=== PATIENT | male | born 1985 | race Caucasian/White ===

== ENCOUNTER 2018-05-26 12:09 | Emergency (ER) | payer SELFPAY ==
[2018-05-26 13:07] LABS: Absolute Lymphocytes (CBC) 1.9 K/uL (0.7-4.9); Absolute Monocytes 0.7 K/uL (0.1-1.3); Absolute Neutrophil 6.5 K/uL (1.8-8.0); Basophils % 0.7 % (0-1.3); Eosinophils % 0.4 % (0-4.4); Hematocrit 40.9 % (39.6-49.0); Lymphocytes % 20.7 % (15.3-44.8); MCH 31.4 pg (27.0-35.0); MCV 90.1 fL (80-100); MPV 7.9 fL (7.6-11.3); Monocytes % 7.6 % (3.3-12.3); RBC Red Blood Cell Count 4.54 M/uL (4.33-5.43)
[2018-05-26 13:57] LABS: Albumin 4.1 g/dL (3.4-5.0); Bilirubin Direct 0.1 mg/dL (0-0.2); Bilirubin Total 0.5 mg/dL (0.2-1.0); Potassium 4.6 mmol/L (3.5-5.1); Protein, Total 7.9 g/dL (6.4-8.2)
--- NOTE | 2018-05-26 14:54 | RAD REPORT ---
EXAM DESCRIPTION: CTAbdomen Pelvis W Contrast - 05/26/2018 2:39 pm CLINICAL HISTORY: Abdominal pain. iv only;Abd pain COMPARISON: No comparisons TECHNIQUE: Biphasic CT imaging of the abdomen and pelvis was performed with 100 ml non-ionic IV cont rast. All CT scans are performed using dose optimization technique as appropriate and may include automated exposure control or mA/KV adjustment according to patient size. FINDINGS: The lung bases are clear. The liver, spleen, pancreas, adrenal glands and kidneys are within normal limits. No bowel obstruction, free air, free fluid or abscess. The appendix is normal. No evidence of signi ficant lymphadenopathy. No suspicious bony findings. IMPRESSION: No acute intra-abdominal or pelvic finding.
--- NOTE | 2018-05-26 15:05 | ER ---
Nurse's Notes [facility] Name: Antolin Parmar Age: 32 yrs Sex: Male : 1985 Arrival Date: 05/26/2018 Time: 12:13 Bed 18 Private MD: None, None Diagnosis: Low back pain;Abdominal and pelvic pain Presentation: 05/26 12:21 Presenting complaint: Patient states: right flank pain and nausea/vomiting. Pt states aa5 "I've been throwing up dark blood for about 2 weeks". Pt states "my urine is brown". Denies pain with urination. Transition of care: patient was not received from another setting of care. Onset of symptoms was May 2018. Risk Assessment: Do you want to hurt yourself or someone else? Patient reports no desire to harm self or others. Initial Sepsis Screen: Does the patient meet any 2 criteria? No. Patient's initial sepsis screen is negative. Does the patient have a suspected source of infection? No. Patient's initial sepsis screen is negative. Care prior to arrival: None. 12:21 Method Of Arrival: Ambulatory aa5 12:21 Acuity: CATALINA 3 aa5 Historical: - Allergies: 12:22 No Known Allergies; aa5 - Home Meds: 12:22 None [Active]; aa5 - PMHx: 12:22 None; aa5 - PSHx: 12:22 None; aa5 - Immunization history:: Adult Immunizations unknown. - Social history:: Smoking status: Patient uses tobacco products, 1-2 cigarettes a day . - Ebola Screening: : No symptoms or risks identified at this time. Screenin:55 Abuse screen: Denies threats or abuse. Denies injuries from another. Nutritional aj screening: No deficits noted. Tuberculosis screening: No symptoms or risk factors identified. Fall Risk None identified. Assessment: 14:15 General: Appears in no apparent distress. comfortable, Behavior is calm, cooperative, aj appropriate for age. Pain: Complains of pain in right lower quadrant and anterior aspect of right lateral abdomen. Neuro: Level of Consciousness is awake, alert, obeys commands, Oriented to person, place, time, situation, Appropriate for age. Respiratory: Airway is patent Respiratory effort is even, unlabored, Respiratory pattern is regular, symmetrical. GI: Abdomen is flat, Reports nausea. Derm: Skin is intact, is healthy with good turgor, Skin is pink, warm \\T\\ dry. normal. Musculoskeletal: Reports pain in back. Vital Signs: 12:22 BP 130 / 72; Pulse 93; Resp 16 S; Temp 98.2(O); Pulse Ox 100% on R/A; Weight 63.5 kg aa5 (R); Height 5 ft. 9 in. (175.26 cm) (R); Pain 9/10; 14:55 BP 129 / 75; Pulse 81; Resp 19; Pulse Ox 99% on R/A; aj 12:22 Body Mass Index 20.67 (63.50 kg, 175.26 cm) aa5 ED Course: 12:13 Patient arrived in ED. mr 12:13 None, None is Private Physician. mr 12:21 Arm band placed on. aa5 12:22 Triage completed. aa5 12:25 Erinn Bynum, KASSI is Primary Nurse. aj 12:29 Rahul Alves PA is PHCP. jr8 12:29 Dex Das MD is Attending Physician. jr8 12:45 Pulse ox on. NIBP on. jp3 13:00 Bed in low position. Call light in reach. Side rails up X 1. jp3 13:00 Urine collected: clean catch specimen, clear, karen colored, Amount Voided: 60mL. jp3 13:29 Lab(s) recollected, by me, sent to lab. jp3 13:30 Basic Metabolic Panel Sent. jp3 13:30 Lipase Sent. jp3 13:30 Hepatic Function Sent. jp3 13:30 Creatinine for Radiology Sent. jp3 13:30 Urine Dipstick--Ancillary (enter results) Sent. jp3 14:15 Inserted saline lock: 20 gauge in right antecubital area, using aseptic technique. aj Blood collected. 14:38 CT completed. Patient tolerated procedure well. Patient moved to CT via wheelchair. vr Patient moved back from CT. 14:39 CT Abd/Pelvis - W/Contrast In Process Unspecified. EDMS 15:03 Cheikh Pagan MD is Referral Physician. jr8 15:13 No provider procedures requiring assistance completed. IV discontinued, intact, aj bleeding controlled, No redness/swelling at site. Pressure dressing applied. Administered Medications: No medications were administered Outcome: 15:03 Discharge ordered by . jr8 15:13 Discharged to home ambulatory. aj 15:13 Condition: good 15:13 Discharge instructions given to patient, Instructed on discharge instructions, follow up and referral plans. medication usage, Demonstrated understanding of instructions, follow-up care, medications, Prescriptions given X 2. 15:31 Patient left the ED. aj Signatures: Dispatcher [employer] Erinn Bliss RN RN aj Rivera, Mary mr Calderon, Audri, RN RN Delmi Willis Josh, PA PA jr8 Lonnie Estrada jp3
--- NOTE | 2018-05-26 15:05 | EDPHYS ---
Physician Documentation [facility] Name: Antolin Parmar Age: 32 yrs Sex: Male : 1985 Arrival Date: 05/26/2018 Time: 12:13 Bed 18 Private MD: None, None ED Physician Dex Das HPI: 05/26 13:56 This 32 yrs old Male presents to ER via Ambulatory with complaints of flank jr8 pain. 13:56 The patient complains of pain in the right flank. Onset: The symptoms/episode jr8 began/occurred acutely, today. Modifying factors: The symptoms are alleviated by nothing. the symptoms are aggravated by nothing. Associated signs and symptoms: Pertinent positives: nausea, vomiting. Severity of pain: At its worst the pain was moderate in the emergency department the pain is unchanged. The patient has not experienced similar symptoms in the past. The patient has not recently seen a physician. Historical: - Allergies: 12:22 No Known Allergies; aa5 - Home Meds: 12:22 None [Active]; aa5 - PMHx: 12:22 None; aa5 - PSHx: 12:22 None; aa5 - Immunization history:: Adult Immunizations unknown. - Social history:: Smoking status: Patient uses tobacco products, 1-2 cigarettes a day . - Ebola Screening: : No symptoms or risks identified at this time. ROS: 13:56 Eyes: Negative for injury, pain, redness, and discharge, ENT: Negative for injury, jr8 pain, and discharge, Neck: Negative for injury, pain, and swelling, Cardiovascular: Negative for chest pain, palpitations, and edema, Respiratory: Negative for shortness of breath, cough, wheezing, and pleuritic chest pain, MS/Extremity: Negative for injury and deformity, Skin: Negative for injury, rash, and discoloration, Neuro: Negative for headache, weakness, numbness, tingling, and seizure. 13:56 Abdomen/GI: Positive for abdominal pain, nausea and vomiting, Negative for diarrhea, constipation, abdominal cramps, abdominal distension, anorexia, dysphagia, hematemesis, black/tarry stool, rectal pain, rectal bleeding, bowel incontinence, flatulence. 13:56 Back: Positive for flank pain, on the right. Exam: 13:56 Eyes: Pupils equal round and reactive to light, extra-ocular motions intact. Lids and jr8 lashes normal. Conjunctiva and sclera are non-icteric and not injected. Cornea within normal limits. Periorbital areas with no swelling, redness, or edema. ENT: Nares patent. No nasal discharge, no septal abnormalities noted. Tympanic membranes are normal and external auditory canals are clear. Oropharynx with no redness, swelling, or masses, exudates, or evidence of obstruction, uvula midline. Mucous membranes moist. Neck: Trachea midline, no thyromegaly or masses palpated, and no cervical lymphadenopathy. Supple, full range of motion without nuchal rigidity, or vertebral point tenderness. No Meningismus. Cardiovascular: Regular rate and rhythm with a normal S1 and S2. No gallops, murmurs, or rubs. Normal PMI, no JVD. No pulse deficits. Respiratory: Lungs have equal breath sounds bilaterally, clear to auscultation and percussion. No rales, rhonchi or wheezes noted. No increased work of breathing, no retractions or nasal flaring. Skin: Warm, dry with normal turgor. Normal color with no rashes, no lesions, and no evidence of cellulitis. MS/ Extremity: Pulses equal, no cyanosis. Neurovascular intact. Full, normal range of motion. Neuro: Awake and alert, GCS 15, oriented to person, place, time, and situation. Cranial nerves II-XII grossly intact. Motor strength 5/5 in all extremities. Sensory grossly intact. Cerebellar exam normal. Normal gait. 13:56 Abdomen/GI: Inspection: abdomen appears normal, Bowel sounds: active, all quadrants, Palpation: soft, in all quadrants, mild abdominal tenderness, in the anterior aspect of right lateral abdomen and right lower quadrant, mass, is not appreciated, rebound tenderness, is not appreciated, voluntary guarding, is not appreciated, involuntary guarding, is not appreciated, no appreciated organomegaly, Indicators: McBurney's point is not tender, Santana's sign is negative, Rovsing's sign is negative, Liver: tenderness, is not appreciated. 13:56 Back: pain, is absent, ROM is normal, normal spinal alignment noted, CVA tenderness, that is mild, is noted on the right. Vital Signs: 12:22 BP 130 / 72; Pulse 93; Resp 16 S; Temp 98.2(O); Pulse Ox 100% on R/A; Weight 63.5 kg aa5 (R); Height 5 ft. 9 in. (175.26 cm) (R); Pain 9/10; 14:55 BP 129 / 75; Pulse 81; Resp 19; Pulse Ox 99% on R/A; aj 12:22 Body Mass Index 20.67 (63.50 kg, 175.26 cm) aa5 MDM: 12:29 Patient medically screened. [facility] 15:03 Data reviewed: vital signs, nurses notes, lab test result(s), radiologic studies, CT jr8 scan, and as a result, I will discharge patient. Data interpreted: Pulse oximetry: on room air is 100 %. Interpretation: normal. Counseling: I had a detailed discussion with the patient and/or guardian regarding: the historical points, exam findings, and any diagnostic results supporting the discharge/admit diagnosis, lab results, radiology results, the need for outpatient follow up, a family practitioner, a cable tool operator, to return to the emergency department if symptoms worsen or persist or if there are any questions or concerns that arise at home. 05/26 12:29 Order name: Basic Metabolic Panel; Complete Time: 14:08 [facility] 05/26 12:29 Order name: CBC with Diff; Complete Time: 13:14 [facility] 05/26 12:29 Order name: Creatinine for Radiology; Complete Time: 14:08 [facility] 05/26 12:29 Order name: Hepatic Function; Complete Time: 14:08 [facility] 05/26 12:29 Order name: Lipase; Complete Time: 14:08 [facility] 05/26 13:14 Order name: Urine Dipstick--Ancillary (enter results) 05/26 12:29 Order name: IV Saline Lock; Complete Time: 12:58 [facility] 05/26 12:29 Order name: Labs collected and sent; Complete Time: 12:58 [facility] 05/26 12:29 Order name: Urine Dipstick-Ancillary (obtain specimen); Complete Time: 13:00 [facility] 05/26 13:10 Order name: Labs - recollect needed; Complete Time: 13:30 05/26 14:09 Order name: CT Abd/Pelvis - W/Contrast; Complete Time: 15:02 jr Administered Medications: No medications were administered Disposition: 05/26/18 15:03 Discharged to Home. Impression: Low back pain, Abdominal and pelvic pain. - Condition is Stable. - Discharge Instructions: Abdominal Pain, Adult, Back Pain, Adult. - Prescriptions for Zofran 4 mg Oral Tablet - take 1 tablet by ORAL route every 12 hours As needed; 20 tablet. Tramadol 50 mg Oral Tablet - take 1 tablet by ORAL route every 8 hours as needed; 12 tablet. - Medication Reconciliation Form, Thank You Letter, Antibiotic Education, Prescription Opioid Use form. - Follow up: Cheikh Pagan MD; When: 2 - 3 days; Reason: Recheck today's complaints, Continuance of care, Re-evaluation by your physician. - Problem is new. - Symptoms have improved. Signatures: Dispatcher [employer] EDMS Imelda Langley Amanda RN RN Lindsey Collins RN RN aa5 Rahul Alves PA PA jr8 Corrections: (The following items were deleted from the chart) 14:00 13:56 This 32 yrs old Male presents to ER via Ambulatory with complaints of jr8 Back Pain. jr8 15:31 15:03 05/26/2018 15:03 Discharged to Home. Impression: Low back pain; Abdominal and aj pelvic pain. Condition is Stable. Forms are Medication Reconciliation Form, Thank You Letter, Antibiotic Education, Prescription Opioid Use. Follow up: Cheikh Pagan; When: 2 - 3 days; Reason: Recheck today's complaints, Continuance of care, Re-evaluation by your physician. Problem is new. Symptoms have improved. jr8
[2018-05-26 16:39] LABS: Urine Blood NEGATIVE (NEG); Urine Glucose NEGATIVE (NEG); Urine Protein NEGATIVE (NEG); Urine Specific Gravity 1.025 (1.005-1.030)
== END 2018-05-26 15:31 | disposition home or self-care (01) ==
LOC: ER 12:09
DX: R10.2 Pelvic and perineal pain (principal); F17.210 Nicotine dependence, cigarettes, uncomplicated
CPT/HCPCS: 36415; 74177; 80048; 80076; 81003; 83690; 85025; Q9967